=== PATIENT | female | born 1995 | race African-American/Black ===

== ENCOUNTER → 2019-06-06 | Day surgery (SDC) | payer OTHER ==
[~2019-06-06] MED LIST: FENTANYL CITRATE/PF 100MCG/2 ML INJ ONE; GLUCAGON FOR INJ 1 MG VIAL ONE; HYOSCYAMINE 0.125 MG TAB ONE; LIDOCAINE HCL 2% LOCAL INJ 5 ML SDV VIAL INJ ONE; MIDAZOLAM HCL 2 MG/2 ML VIAL ONE; PROPOFOL IV EMULSION 10 MG/ML 20 ML VIAL ONE
--- OUTSIDE RECORDS SUMMARY | 2019-06-06 11:23 | XMS REPORT ---
Author Author [facility] Address Unknown Phone Unavailable Care Team Providers Care Binder Selector Name Role Phone Unavailable Unavailable Problems This patient has no known problems. Allergies, Adverse Reactions, Alerts This patient has no known allergies or adverse reactions. Medications This patient has no known medications. Encounters Start Date/Time End Date/Time Encounter Type Admission Type Attending [facility] Facility Care Department Encounter ID 2019-04-09 14:29:00 2019-04-09 14:29:00 Emergency [id number] 2018-10-19 02:09:46 2018-10-19 02:09:46 Emergency [facility] [id number] 2018-10-19 00:40:43 2018-10-19 00:40:43 Emergency [facility] [id number]
[2019-06-06 16:20] VITALS: BP 120/64
[2019-06-06 16:53] LABS: WBC,FECAL (FECAL LACTOFERRIN) POSITIVE (NEGATIVE)
--- NOTE | 2019-06-06 18:52 | Operative Report ---
DATE OF PROCEDURE: 06/06/2019 SURGEON: Austin Andrew MD PROCEDURE: Colonoscopy with biopsies. INDICATIONS FOR PROCEDURE: Lower abdominal pain, diarrhea, bright red blood per rectum. MEDICATIONS: The patient was done under MAC, please see anesthesiologist's note. PROCEDURE IN DETAIL: With the patient in the left lateral decubitus position, the flexible fiberoptic Olympus colonoscope was inserted into the rectum with ease and advanced all the way to the cecum. It was then withdrawn slowly, mucosa overlying the cecum appeared to be within normal limits. The ileocecal valve was intubated and the scope was advanced into the terminal ileum. Biopsies were obtained. The scope was then withdrawn back into the colon. It was then withdrawn slowly, mucosa overlying the ascending, transverse, and descending grossly appeared to be within normal limits. Mucosa overlying the sigmoid colon and the rectum revealed some patchy areas of erythema and low-grade edema, and biopsies were obtained. The scope was then retroflexed into the distal rectum and small internal hemorrhoids were noted, none of which was actively bleeding. The scope was then straightened out and it was subsequently withdrawn after securing an adequate stool specimen that was sent for the appropriate stool studies. The patient tolerated the procedure well. IMPRESSION: 1. Proctosigmoiditis, mild. 2. Internal hemorrhoids, none actively bleeding. PLAN: Follow up histology. Follow up stool studies. Initiate Bentyl 10 mg 1 p.o. t.i.d. VSL#3 one p.o. daily. Austin Andrew MD [facility] [place]/[facility] [place] /[id number]
[2019-06-07 14:05] LABS: C DIFFICILE TOXIN A&B AMP PROB NEGATIVE (NEGATIVE)
== END | disposition home or self-care (01) ==
LOC: OR 11:21
PROVIDERS: ATTEND Internal Medicine Gastroenterology
DX: K52.9 Noninfective gastroenteritis and colitis, unspecified (principal); K63.89 Other specified diseases of intestine; K64.8 Other hemorrhoids; K59.00 Constipation, unspecified; Z72.0 Tobacco use; Z68.38 Body mass index [BMI] 38.0-38.9, adult
CPT/HCPCS: 45380; 81025; 83630; 83993; 87045; 87177; 87328; 87493; J1610; J2001; J2250; J2704; J3010; 45378